=== PATIENT | male | born 1940 | race Caucasian/White ===

== ENCOUNTER 2017-01-22 12:35 | Day surgery (SDC) | payer MEDICARE ==
[~2017-01-22 12:35] MED LIST: LEVO75TA3 PO; MAGN250T13 PO; METF500 PO
[2017-01-22] MEDS ORDERED: IOHEXOL 300 MG/ML 50 ML BTL (for RAD DIAG) OTHER ONE (12:36)
[2017-01-22 13:03] VITALS: BP 186/89; PULSE 50; RESP 18; TEMP 97.9; O2SAT 97
[2017-01-22] MEDS ORDERED: METF500 PO (13:06)
[2017-01-22] MEDS ORDERED: LEVO75TA3 PO (13:07)
[2017-01-22] MEDS ORDERED: MAGN500T5 PO (13:08)
[2017-01-22] MEDS ORDERED: LISI10TA3 PO (13:08)
[2017-01-22] MEDS ORDERED: DEXAMETHASONE SOD PHOS 4 MG/ML VIAL ONE (13:52)
[2017-01-22] MEDS ORDERED: SODIUM CHLORIDE 0.9% INJ 0 ML ONE (13:53)
[2017-01-22] MEDS ORDERED: SODIUM CHLORIDE 0.9% INJ 10 ML ONE (13:59)
[2017-01-22 14:16] VITALS: BP 145/64; PULSE 52; RESP 17; TEMP 97; O2SAT 98
--- NOTE | 2017-01-22 15:21 | RADRPT ---
EXAM DATE/TIME: 01/22/2017 13:31 [place] COMPARISON: EPI INJ LUMBSACRAL/CAUD FLGUID, January 18, 2016, 15:13. INDICATIONS : Patient presents with back pain in need of epidural steroid injection for pain management. MEDICAL HISTORY : DM HTN LT shoulder atrophy Arthritis SURGICAL HISTORY : Back sx L3-L5 Fusion ENCOUNTER: Subsequent ACUITY: 2 weeks PAIN SCORE: 2/10 LOCATION: Left Leg pain FLUORO TIME: 2.6 minutes IMAGE SERIES: 3 CONTRAST: 0.5 cc Omnipaque (iohexol) 300 ACCESS LEVEL: L2-L3 MEDICATIONS: 1.) 1 cc Lidocaine IA 2.) 1 cc IA Sodium chloride 3.) 1 cc IA Decadron RESPONSE: Pre procedure pain level was 2/10. Post procedure pain level was 0/10. PROCEDURE : 1. Fluoroscopically guided epidural injection. The risks, benefits and alternatives to the procedure were explained and verbal and written consent w as obtained. The site was prepped in sterile fashion. Full sterile technique was used, including ca p, mask, sterile gloves and gown and a large sterile sheet. Hand hygiene and 2% chlorhexidine and/or betadine/alcohol prep was utilized per protocol for cutaneous antisepsis. The skin and subcutaneous tissues were infiltrated with local anesthetic solution. With fluoroscopic guidance the targeted epidural space was localized and positive contrast was inject ed to confirm epidural spread. Following this the prescribed medication was injected surrounding the space. The patient's preprocedure pain and post procedure pain levels were recorded. CONCLUSION: Uncomplicated fluoroscopically guided epidural injection as above. Yeyo Tompkins MD on January 22, 2017 at 15:08 Board Certified Radiologist. This report was verified electronically.
== END 2017-01-22 14:20 | disposition home or self-care (01) ==
LOC: HROP 12:35 → HRIP 12:38 → HROP 14:20
PROVIDERS: ATTEND Family Medicine
DX: M54.5 Low back pain (principal); E11.9 Type 2 diabetes mellitus without complications; I10 Essential (primary) hypertension
CPT/HCPCS: 62323; J1100; Q9967